=== PATIENT | male | born 1960 | race Caucasian/White ===

== ENCOUNTER 2023-12-28 16:08 | Inpatient (IN) | payer MEDICAID, OTHER ==
[~2023-12-28] VITALS: Ht 172.7 cm; Wt 92.1 kg
[2023-12-28] MEDS: ACETAMINOPHEN 325 MG TAB PO ONE (08:23)
[2023-12-28 16:15] VITALS: PULSE 114; RESP 16; O2SAT 95
[2023-12-28] MEDS: LORazepam 2MG/ML-1ML VIAL IV ONE (16:43)
[2023-12-28] MEDS: LORazepam 2MG/ML-1ML VIAL ONE (16:45)
[2023-12-28] MEDS: levETIRAcetam 1000 mg/100ml 100 ML IV ONE (16:50)
[2023-12-28 16:57] LABS: Basophils # (auto) 0 10 ^3/uL (0-0.2); Basophils % (auto) 0.2 % (0.0-2.0); Eosinophils # (auto) 0 10 ^3/uL (0-0.8); Eosinophils % (auto) 0.1 % (0.0-7.0); Hematocrit 52.2 % (41.0-53.0); Hemoglobin 16.7 g/dL (13.5-17.5); Lymphocytes # (auto) 1.9 10 ^3/uL (0.4-5.4); Lymphocytes % (auto) 7.3 % (10.0-50.0); Mean Corpuscular Hemoglobin 31.5 pg (28.0-32.0); Mean Corpuscular Hgb Conc. 32.1 g/dL (32.0-36.0); Mean Corpuscular Volume 98.3 fL (80.0-100.0); Monocytes # (auto) 1.2 10 ^3/uL (0-1.3); Monocytes % (auto) 4.5 % (0.0-12.0); Neutrophils # (auto) 22.8 10 ^3/uL (1.6-8.6); Neutrophils % (auto) 87.9 % (37.0-80.0); Nucleated Red Blood Cells % 0.1 %; Red Blood Cells 5.31 10^6/uL (4.5-5.90); Red Cell Distribution Width 14.5 % (11.8-14.3); White Blood Cell 25.9 10^3/uL (4.4-10.8)
[2023-12-28 17:19] LABS: Alanine Aminotransferase 37 U/L (7-40); Albumin 5.1 g/dL (3.2-4.8); Alkaline Phosphatase 83 U/L (46-116); Anion Gap 22.00001 (5-15); Aspartate Aminotransferase 40 U/L (13-40); BUN/Creatinine Ratio 6.9 (10.0-20.0); Bilirubin, Total 0.4 mg/dL (0.2-1.0); Blood Alcohol < 3.0 mg/dL (<10); Blood Urea Nitrogen 8 mg/dL (9-23); Calcium 9.5 mg/dL (8.5-10.1); Chloride 102 mmol/L (98-107); Glucose 138 mg/dL (74-106); Potassium 3.8 mmol/L (3.5-5.1); Sodium 134 mmol/L (136-145); Total Protein 7.8 g/dL (5.7-8.2)
[2023-12-28 17:40] LABS: Carbon Dioxide < 10 mmol/L (20-30)
[2023-12-28 17:40] LABS: Amphetamine Screen, Urine Neg (NEGATIVE); Benzodiazephine Screen, Urine Neg (NEGATIVE); Cannabinoid Screen, Urine Neg (NEGATIVE); Cocaine Screen, Urine Neg (NEGATIVE); Opiate Scree,Urine Pos (NEGATIVE); Phencyclidine Screen, Urine Neg (NEGATIVE)
[2023-12-28 18:13] LABS: Urine Bacteria FEW /hpf (None Seen); Urine Blood 2+ /uL (Negative); Urine Clarity Clear (Clear); Urine Color Light-Yellow (Yellow); Urine Hyaline Cast FEW /lpf (0 - 2); Urine Mucus FEW (None Seen); Urine Protein, UAD 1+ (Negative); Urine Specific Gravity 1.015 (1.001-1.035); Urine Sperm PRESENT /hpf (None Seen); Urine Urobilinogen Normal (Negative); Urine WBC 1 /hpf (0 - 3)
[2023-12-28 18:16] LABS: Base Excess -9.1 mmol/L (-2.0-2.0)
[2023-12-28 18:51] LABS: Barbiturate Scree,Urine Neg (NEGATIVE)
[2023-12-28 19:30] VITALS: PULSE 83; RESP 16; O2SAT 98
[2023-12-28] MEDS ORDERED: ONDANSETRON HCL 4 MG/2 ML VIAL IV PRN (21:30)
[2023-12-28] MEDS ORDERED: LORazepam 2MG/ML-1ML VIAL IV PRN (21:30)
[2023-12-28] MEDS: ACETAMINOPHEN 325 MG TAB PO PRN (23:52)
[2023-12-29] MEDS: HYDROcodone-ACET 5/325MG TAB PO PRN (00:08)
[2023-12-29 05:53] LABS: Basophils # (auto) 0 10 ^3/uL (0-0.2); Basophils % (auto) 0.3 % (0.0-2.0); Eosinophils # (auto) 0.1 10 ^3/uL (0-0.8); Eosinophils % (auto) 0.6 % (0.0-7.0); Hematocrit 46.2 % (41.0-53.0); Hemoglobin 15.4 g/dL (13.5-17.5); Lymphocytes % (auto) 14.6 % (10.0-50.0); Mean Corpuscular Hemoglobin 31.6 pg (28.0-32.0); Mean Corpuscular Hgb Conc. 33.4 g/dL (32.0-36.0); Mean Corpuscular Volume 94.6 fL (80.0-100.0); Monocytes # (auto) 0.9 10 ^3/uL (0-1.3); Monocytes % (auto) 7.1 % (0.0-12.0); Neutrophils # (auto) 10.3 10 ^3/uL (1.6-8.6); Neutrophils % (auto) 77.4 % (37.0-80.0); Red Blood Cells 4.88 10^6/uL (4.5-5.90); Red Cell Distribution Width 13.7 % (11.8-14.3); White Blood Cell 13.4 10^3/uL (4.4-10.8)
[2023-12-29] MEDS: SODIUM CHLORIDE 0.9% 500 ML IV ONE (06:01)
[2023-12-29 06:22] LABS: Alanine Aminotransferase 30 U/L (7-40); Albumin 4.5 g/dL (3.2-4.8); Alkaline Phosphatase 63 U/L (46-116); Anion Gap 4 (5-15); Aspartate Aminotransferase 61 U/L (13-40); BUN/Creatinine Ratio 7.2 (10.0-20.0); Blood Urea Nitrogen 8 mg/dL (9-23); Calcium 9.1 mg/dL (8.5-10.1); Carbon Dioxide 25 mmol/L (20-30); Chloride 105 mmol/L (98-107); Glucose 99 mg/dL (74-106); Potassium 4.2 mmol/L (3.5-5.1); Sodium 134 mmol/L (136-145)
[2023-12-29 06:23] LABS: Bilirubin, Total 0.7 mg/dL (0.2-1.0); Total Protein 6.5 g/dL (5.7-8.2)
[2023-12-29 07:30] VITALS: PULSE 80; RESP 18; O2SAT 95
[2023-12-29] MEDS: HYDROcodone-ACET 5/325MG TAB ONE (08:24)
[2023-12-29 11:00] VITALS: BP_SYST 125; BP_SYST 153; BP_DIAS 67; BP_DIAS 82; PULSE 63; RESP 18; TEMP 98.3; TEMP 98.4; O2SAT 96; O2SAT 97
[2023-12-29] MEDS ORDERED: HYDR-4072 PO (11:50)
[2023-12-29 12:29] LABS: Hepatitis B Surface Antigen Negative (Negative)
[2023-12-29] MEDS: THIAMINE 100mg/ml INJ (200mg/2ml VIAL) IV ONE (12:44)
[2023-12-29 12:45] VITALS: BP 151/69; PULSE 77; RESP 18; TEMP 98.4; O2SAT 90
[2023-12-29 12:50] LABS: Hepatitis C Antibody Negative (Negative)
[2023-12-29 17:12] VITALS: BP 149/98; PULSE 80; RESP 18; TEMP 98.7; O2SAT 94
[2023-12-29] MEDS: HYDROcodone-ACET 10/325MG TAB PO PRN (18:11)
[2023-12-29] MEDS: FOLIC ACID 1 MG, MAGNESIUM SULF SDV 50% 8 MEQ, MULTIPLE VITAMIN 10 ML, THIAMINE INJ 100... INJ SCH (18:13)
[2023-12-29 20:00] VITALS: BP 133/76; PULSE 61; RESP 18; TEMP 98.1; O2SAT 95
[2023-12-29 21:00] VITALS: BP 133/76; PULSE 61; RESP 18; TEMP 98.1; O2SAT 95
[2023-12-30 01:00] VITALS: BP 117/60; PULSE 63; RESP 17; TEMP 97.8; O2SAT 97
[2023-12-30 05:00] VITALS: BP 123/71; PULSE 73; RESP 18; TEMP 97.7; O2SAT 96
[2023-12-30] MEDS ORDERED: TIZA4TAB9 PO (05:15)
[2023-12-30 05:52] LABS: Basophils # (auto) 0 10 ^3/uL (0-0.2); Basophils % (auto) 0.1 % (0.0-2.0); Eosinophils # (auto) 0.1 10 ^3/uL (0-0.8); Eosinophils % (auto) 0.5 % (0.0-7.0); Lymphocytes # (auto) 1.8 10 ^3/uL (0.4-5.4); Lymphocytes % (auto) 13.4 % (10.0-50.0); Mean Corpuscular Hemoglobin 31.5 pg (28.0-32.0); Mean Corpuscular Hgb Conc. 33.4 g/dL (32.0-36.0); Mean Corpuscular Volume 94.5 fL (80.0-100.0); Monocytes # (auto) 0.9 10 ^3/uL (0-1.3); Monocytes % (auto) 6.4 % (0.0-12.0); Neutrophils # (auto) 10.7 10 ^3/uL (1.6-8.6); Neutrophils % (auto) 79.6 % (37.0-80.0); Red Blood Cells 4.77 10^6/uL (4.5-5.90); Red Cell Distribution Width 13.9 % (11.8-14.3); White Blood Cell 13.4 10^3/uL (4.4-10.8)
[2023-12-30 06:04] LABS: Chloride 104 mmol/L (98-107); Sodium 136 mmol/L (136-145)
[2023-12-30 06:05] LABS: Anion Gap 8 (5-15); Calcium 9.3 mg/dL (8.7-10.4); Carbon Dioxide 24 mmol/L (20-30)
[2023-12-30 06:10] LABS: Glucose 97 mg/dL (74-106)
[2023-12-30 06:36] LABS: BUN/Creatinine Ratio 8.7 (10.0-20.0); Blood Urea Nitrogen 8 mg/dL (9-23)
[2023-12-30 08:00] VITALS: BP 121/59; PULSE 68; RESP 18; TEMP 98; O2SAT 95
[2023-12-30 08:24] VITALS: BP 121/59; PULSE 68; RESP 18; TEMP 98; O2SAT 96
[2023-12-30 12:29] VITALS: BP 135/79; PULSE 66; RESP 20; TEMP 98.2; O2SAT 98
[2023-12-30 14:23] VITALS: BP 135/79; PULSE 66; RESP 18; TEMP 36.8; O2SAT 98
== END 2023-12-30 15:30 | disposition home or self-care (01) | DRG 53 ==
LOC: ER 16:08 → EDUNIT# 16:08 → EDBD 16:08 → OVERFLOW 21:31 → WEST WING 12-29 09:58
PROVIDERS: ADMIT Nurse Practitioner; ATTEND Internal Medicine Pulmonary Disease
DX: G40.501 Epileptic seizures related to external causes, not intractable, with status epilepticus (principal); E86.0 Dehydration; F17.210 Nicotine dependence, cigarettes, uncomplicated; G89.4 Chronic pain syndrome; F10.139 Alcohol abuse with withdrawal, unspecified; Y90.9 Presence of alcohol in blood, level not specified
CPT/HCPCS: 36415; 36600; 70450; 70551; 71045; 80048; 80053; 80307; 80320; 81001; 82010; 82805; 83605; 85025; 86803; 87040; 87340; 93005; 95819; 99291; G0378

== ENCOUNTER 2024-02-18 17:31 | Emergency (ER) | payer MEDICAID ==
[~2024-02-18] VITALS: Ht 172.7 cm; Wt 81.8 kg
[~2024-02-18 17:31] MED LIST: HYDR-4072 PO; TIZA4TAB9 PO
[2024-02-18 17:38] VITALS: BP 143/83; PULSE 86; RESP 20; O2SAT 100
== END 2024-02-18 21:07 | disposition left against medical advice (07) ==
LOC: ER 17:31 → EDBD 17:31 → ER 21:07
DX: R41.0 Disorientation, unspecified (principal); Z53.21 Procedure and treatment not carried out due to patient leaving prior to being seen by health care provider